=== PATIENT | female | born 1990 | race African-American/Black ===

== ENCOUNTER 2023-11-11 18:06 | Inpatient (IN) | payer MEDICAID ==
[~2023-11-11] VITALS: Ht 144.8 cm; Wt 60.5 kg
[2023-11-11] MEDS: DiphenhydrAMINE HCL 50 MG/ML VIAL IM ONE (19:22)
[2023-11-11] MEDS: LORazepam 2 MG/ML VIAL IM ONE (19:22)
[2023-11-11] MEDS: HALOPERIDOL LACTATE 5 MG/ML VIAL IM ONE (19:23)
[2023-11-11 19:43] LABS: BASOPHILS % (AUTO) 0.4 % (0.0-2.0); EOSINOPHILS % (AUTO) 1.4 % (1.0-6.0); HEMATOCRIT 40.5 % (36-46); HEMOGLOBIN 13.5 g/dL (12.0-16.0); LYMPHOCYTES # (AUTO) 2.1 K/uL (1.0-4.8); LYMPHOCYTES % (AUTO) 14.2 % (22.0-44.0); MEAN CORPUSCULAR HEMOGLOBIN 30.6 pg (26.0-34.0); MEAN CORPUSCULAR HGB CONC 33.3 G/dL (31.0-37.0); MEAN CORPUSCULAR VOLUME 92 fL (80-100); MONOCYTES # (AUTO) 0.8 K/uL (0.1-1.0); MONOCYTES % (AUTO) 5.8 % (2.0-9.0); NEUTROPHILS # (AUTO) 11.5 K/uL (1.8-7.7); NEUTROPHILS % (AUTO) 78.2 % (40.0-70.0); PLATELET COUNT (AUTO) 344 K/uL (150-450); RED BLOOD CELL COUNT(AUTO) 4.41 MIL/uL (4.00-5.20); RED CELL DISTRIBUTION WIDTH 14.6 % (11.5-14.5); WHITE BLOOD COUNT (AUTO) 14.7 K/uL (4.5-11.0)
[2023-11-11 19:50] LABS: ANION GAP 15 mmol/L (8-16); CALCIUM, TOTAL 9.1 mg/dL (8.8-10.5); CARBON DIOXIDE 23 mmol/L (22-29); CHLORIDE 100 mmol/L (98-107); CREATININE 0.91 mg/dL (0.60-1.30); GLOMERULAR FILTR. RATE CALC > 60 mL/min (>60); GLUCOSE,RANDOM 89 mg/dL (70-110); POTASSIUM 3.3 mmol/L (3.5-5.1); SODIUM SERUM 138 mmol/L (136-145); UREA NITROGEN, BLOOD 8 mg/dL (7-18)
[2023-11-11 19:56] LABS: ALANINE AMINOTRANSFERASE 25 U/L (12-78); ALBUMIN 4.1 g/dL (3.4-5.0); ALKALINE PHOSPHATASE 60 U/L (46-116); ASPARTATE AMINOTRANSFERASE 26 U/L (15-37); BILIRUBIN,TOTAL 0.3 mg/dL (0.1-1.0); TOTAL PROTEIN, SERUM 8.8 g/dL (6.4-8.2)
[2023-11-11 19:57] LABS: ALCOHOL, BLOOD (SERUM) 177 mg/dL (0-10)
[2023-11-11 23:01] LABS: COVID AG,FIA SOURCE NASAL SWAB
[2023-11-11 23:24] LABS: SARS-COV2 (COVID) ANTIGEN,FIA Negative (Negative)
[2023-11-12] VITALS (8 sets, daily range): BP systolic 97–127; BP diastolic 60–76; PULSE 76–99; RESP 16–19; TEMP 97.7–98.6; O2SAT 96–100
[2023-11-12] MEDS: POTASSIUM CHLORIDE 20 MEQ ER TABLET PO ONE (00:43)
[2023-11-12] MEDS: ZOLPIDEM TARTRATE 10 MG TABLET PO PRN (03:00)
[2023-11-12] MEDS: LORazepam 2 MG TABLET PO PRN (03:00)
[2023-11-12] MEDS ORDERED: ALBUTEROL SULFATE HFA 90 MCG/PUFF 8 GM INHALER IH PRN (07:30)
[2023-11-12] MEDS ORDERED: CloNIDine HCL 0.1 MG TABLET PO PRN (07:30)
[2023-11-12] MEDS ORDERED: ACETAMINOPHEN 325 MG TABLET PO PRN ×2 (07:30→09:30)
[2023-11-12] MEDS ORDERED: OMEPRAZOLE 20 MG CAPSULE PO PRN (07:30)
[2023-11-12] MEDS ORDERED: DOCUSATE SODIUM 100 MG CAPSULE PO PRN (07:30)
[2023-11-12] MEDS ORDERED: MAG HYDROX/ALUMINUM HYD/SIMETH ES 30 ML SUSPENSION UDCUP PO PRN ×2 (07:30→09:30)
[2023-11-12] MEDS ORDERED: PETROLATUM,WHITE 28 GM JELLY TP PRN (07:30)
[2023-11-12] MEDS ORDERED: MAGNESIUM HYDROXIDE SUSPENSION 30 ML UDCUP PO PRN ×2 (07:30→09:30)
[2023-11-12] MEDS ORDERED: ONDANSETRON HCL 4 MG TABLET PO PRN (07:30)
[2023-11-12] MEDS ORDERED: IBUPROFEN 600 MG TABLET PO PRN (07:30)
[2023-11-12] MEDS ORDERED: BENZOCAINE/MENTHOL LOZENGE PO PRN (07:30)
[2023-11-12] MEDS ORDERED: BACITRACIN 28 GM OINTMENT TP PRN (07:30)
[2023-11-12] MEDS ORDERED: LOPERAMIDE HCL 2 MG CAPSULE PO PRN ×3 (07:30→09:30)
[2023-11-12] MEDS: HALOPERIDOL 5 MG TABLET PO PRN (08:22)
[2023-11-12] MEDS ORDERED: LORazepam 2 MG TABLET PO PRN (09:30)
[2023-11-12] MEDS ORDERED: TUBERCULIN, PURIFIED PROTEIN DERIVATIVE 5 TU/0.1 ML SYRINGE ID ONE (09:30)
[2023-11-12] MEDS ORDERED: HydrOXYzine PAMOATE 50 MG CAPSULE PO PRN (09:30)
[2023-11-12] MEDS ORDERED: GuaiFENesin/D-METHORPHAN [SUGAR-FREE] 200-20MG/10 ML SYRUP UDCUP PO PRN (09:30)
[2023-11-12] MEDS ORDERED: PROMETHAZINE HCL 25 MG TABLET PO PRN (09:30)
[2023-11-12] MEDS: CYANOCOBALAMIN 1,000 MCG/ML VIAL IM ONE (10:26)
[2023-11-12] MEDS: THIAMINE 100 MG TABLET PO SCH (16:30)
[2023-11-12] MEDS: OLANZapine 5 MG RAPDIS TABLET PO SCH (21:07)
[2023-11-12] MEDS: MELATONIN 5 MG TABLET PO SCH (21:07)
[2023-11-13] VITALS (7 sets, daily range): BP systolic 106–134; BP diastolic 67–77; PULSE 86–95; RESP 16–18; TEMP 97.9–100.4; O2SAT 98–100
[2023-11-13] MEDS ORDERED: LORazepam 2 MG TABLET PO PRN (07:00)
[2023-11-13] MEDS: LORazepam 2 MG TABLET PO SCH (08:55)
[2023-11-13] MEDS: MULTIVITAMINS WITH MINERALS, THERAPEUTIC TABLET PO SCH (08:55)
[2023-11-13] MEDS: NALTREXONE HCL 50 MG TABLET PO SCH (08:55)
[2023-11-13] MEDS: FOLIC ACID 1 MG TABLET PO SCH (08:55)
[2023-11-13] MEDS: FLUoxetine HCL 10 MG CAPSULE PO SCH (08:58)
[2023-11-13 09:09] LABS: HEMOGLOBIN A1C 5.2 % (3.8-5.6)
[2023-11-13 09:21] LABS: ALANINE AMINOTRANSFERASE 23 U/L (12-78); ALBUMIN 3.6 g/dL (3.4-5.0); ALKALINE PHOSPHATASE 58 U/L (46-116); ANION GAP 14 mmol/L (8-16); ASPARTATE AMINOTRANSFERASE 41 U/L (15-37); CALCIUM, TOTAL 8.8 mg/dL (8.8-10.5); CARBON DIOXIDE 23 mmol/L (22-29); CHLORIDE 99 mmol/L (98-107); CHOL/HDL RATIO 3.6 (3.9-5.7); CHOLESTEROL 163 mg/dL (131-200); CREATININE 0.69 mg/dL (0.60-1.30); FREE T4 (FREE THYROXINE) 1.21 ng/dL (0.76-1.46); GLOMERULAR FILTR. RATE CALC > 60 mL/min (>60); GLUCOSE,RANDOM 52 mg/dL (70-110); HCG,QUANTITATIVE 100 mIU/mL (0-6); HDL CHOLESTEROL 45 mg/dL (40-60); LDL CHOL (CALC.) 96 mg/dL (0-130); SODIUM SERUM 136 mmol/L (136-145); THYROID STIMULATING HORMONE 1.03 uIU/mL (0.36-3.74); TOTAL PROTEIN, SERUM 7.8 g/dL (6.4-8.2); TRIGLYCERIDES 108 mg/dL (15-150); UREA NITROGEN, BLOOD 12 mg/dL (7-18)
[2023-11-13] MEDS ORDERED: ChlordiazePOXIDE HCL 25 MG CAPSULE PO PRN (17:15)
[2023-11-13] MEDS ORDERED: SERTRALINE HCL 100 MG TABLET PO ONE (17:15)
[2023-11-13] MEDS ORDERED: LITHIUM CARBONATE 600 MG CAPSULE PO SCH (21:00)
[2023-11-13] MEDS: PRENATAL NO.137/IRON/FOLIC ACID TABLET PO SCH (21:21)
[2023-11-14] MEDS ORDERED: ChlordiazePOXIDE HCL 25 MG CAPSULE PO PRN (07:00)
[2023-11-14] MEDS ORDERED: SERTRALINE HCL 100 MG TABLET PO SCH (09:00)
[2023-11-14] MEDS: ChlordiazePOXIDE HCL 25 MG CAPSULE PO SCH (09:18)
[2023-11-14 09:21] VITALS: BP 135/94; PULSE 105; RESP 18; TEMP 98.2; O2SAT 98
[2023-11-15] MEDS ORDERED: LORazepam 1 MG TABLET PO PRN (07:00)
[2023-11-15] MEDS ORDERED: LORazepam 1 MG TABLET PO SCH (09:00)
[2023-11-16] MEDS ORDERED: LORazepam 1 MG TABLET PO PRN (07:00)
[2023-11-16] MEDS ORDERED: ChlordiazePOXIDE HCL 10 MG CAPSULE PO PRN (07:00)
[2023-11-16] MEDS ORDERED: ChlordiazePOXIDE HCL 10 MG CAPSULE PO SCH (09:00)
[2023-11-17] MEDS ORDERED: ChlordiazePOXIDE HCL 10 MG CAPSULE PO PRN (07:00)
== END 2023-11-14 17:05 | disposition home or self-care (01) | DRG 751 ==
LOC: EMS 18:13 → B3A 11-12 02:43
PROVIDERS: ADMIT Psychiatry & Neurology Psychiatry; ATTEND Psychiatry & Neurology Psychiatry
PROC: GZHZZZZ Group Psychotherapy (ICD-10-PCS; principal; 2023-11-13)
PROC: GZ58ZZZ Individual Psychotherapy, Cognitive-Behavioral (ICD-10-PCS; 2023-11-13)
PROC: GZ56ZZZ Individual Psychotherapy, Supportive (ICD-10-PCS; 2023-11-13)
DX: F33.9 Major depressive disorder, recurrent, unspecified (principal); R45.851 Suicidal ideations; R56.9 Unspecified convulsions; E87.6 Hypokalemia; F10.10 Alcohol abuse, uncomplicated; Z20.822 Contact with and (suspected) exposure to COVID-19; F41.9 Anxiety disorder, unspecified; G47.00 Insomnia, unspecified; K59.00 Constipation, unspecified
CPT/HCPCS: 80053; 80061; 83036; 84439; 84443; 84702; 85025; 99285; G0480; J1200; J1630; J2060; J3420

== ENCOUNTER 2024-01-13 15:53 | Emergency (ER) | payer MEDICAID ==
[~2024-01-13] VITALS: Ht 149.9 cm; Wt 59.1 kg
[2024-01-13 16:28] LABS: COVID AG,FIA SOURCE NASAL SWAB
[2024-01-13 16:33] VITALS: TEMP 98.3
[2024-01-13 16:47] LABS: INFLUENZA TYPE A NEGATIVE FOR TYPE A (NEGATIVE); INFLUENZA TYPE B NEGATIVE FOR TYPE B (NEGATIVE); SARS-COV2 (COVID) ANTIGEN,FIA Negative (Negative)
[2024-01-13 19:32] VITALS: BP 125/89; PULSE 76; RESP 20; O2SAT 98
== END 2024-01-13 19:34 | disposition home or self-care (01) ==
LOC: EMS 16:18
DX: K59.00 Constipation, unspecified (principal); R10.30 Lower abdominal pain, unspecified; Z20.822 Contact with and (suspected) exposure to COVID-19
CPT/HCPCS: 74018; 87804; 99284

== ENCOUNTER 2024-12-08 16:17 | Inpatient (IN) | payer MEDICAID, OTHER ==
[~2024-12-08] VITALS: Ht 147.3 cm; Wt 61.6 kg
[2024-12-08 16:57] LABS: PLATELET COUNT (AUTO) 295 K/uL (150-450); RED BLOOD CELL COUNT(AUTO) 4.34 MIL/uL (4.00-5.20); RED CELL DISTRIBUTION WIDTH 14.7 % (11.5-14.5); WHITE BLOOD COUNT (AUTO) 12.2 K/uL (4.5-11.0)
[2024-12-08 17:05] LABS: CALCIUM, TOTAL 8.9 mg/dL (8.8-10.5); CREATININE 0.88 mg/dL (0.60-1.30); GLOMERULAR FILTR. RATE CALC > 60 mL/min (>60); GLUCOSE,RANDOM 98 mg/dL (70-110); SODIUM SERUM 143 mmol/L (136-145); UREA NITROGEN, BLOOD 6 mg/dL (7-18)
[2024-12-08 17:05] LABS: COVID AG,FIA SOURCE NASAL SWAB
[2024-12-08 17:28] LABS: SARS-COV2 (COVID) ANTIGEN,FIA Negative (Negative)
[2024-12-08 18:42] VITALS: O2SAT 99
[2024-12-08] MEDS: POTASSIUM CHLORIDE 20 MEQ ER TABLET PO ONE (19:08)
[2024-12-08] MEDS: NICOTINE 7 MG/24 HOUR PATCH TD ONE (20:20)
[2024-12-08 23:01] VITALS: BP 154/104; PULSE 76; RESP 19; TEMP 98.1; O2SAT 99
[2024-12-09] MEDS ORDERED: OMEPRAZOLE 20 MG CAPSULE PO PRN (02:00)
[2024-12-09] MEDS ORDERED: PETROLATUM,WHITE 28 GM JELLY TP PRN (02:00)
[2024-12-09] MEDS ORDERED: LOPERAMIDE HCL 2 MG CAPSULE PO PRN (02:00)
[2024-12-09] MEDS ORDERED: MAG HYDROX/ALUMINUM HYD/SIMETH ES 30 ML SUSPENSION UDCUP PO PRN (02:00)
[2024-12-09] MEDS ORDERED: DOCUSATE SODIUM 100 MG CAPSULE PO PRN (02:00)
[2024-12-09] MEDS ORDERED: BACITRACIN 28 GM OINTMENT TP PRN (02:00)
[2024-12-09] MEDS ORDERED: BENZOCAINE/MENTHOL [CEPACOL] LOZENGE PO PRN (02:00)
[2024-12-09] MEDS ORDERED: MAGNESIUM HYDROXIDE SUSPENSION 30 ML UDCUP PO PRN (02:00)
[2024-12-09] MEDS ORDERED: ONDANSETRON 4 MG TABLET PO PRN (02:00)
[2024-12-09] MEDS ORDERED: ALBUTEROL SULFATE HFA 90 MCG/PUFF 8 GM INHALER IH PRN (02:00)
[2024-12-09] MEDS: NICOTINE 21 MG/24 HOUR PATCH TD SCH (08:13)
[2024-12-09 08:18] VITALS: BP 119/78; PULSE 78; RESP 16; TEMP 96.7; O2SAT 97
[2024-12-09] MEDS ORDERED: SERT200C PO (10:51)
[2024-12-09] MEDS ORDERED: LITH300T45 PO (10:51)
[2024-12-09 11:42] VITALS: RESP 18
[2024-12-09] MEDS: SERTRALINE HCL 100 MG TABLET PO SCH (11:42)
[2024-12-09] MEDS: ACETAMINOPHEN 325 MG TABLET PO PRN (11:43)
[2024-12-09 12:42] VITALS: RESP 18
[2024-12-09 18:20] VITALS: RESP 16
[2024-12-09 19:20] VITALS: RESP 16
[2024-12-09 20:21] VITALS: BP 125/82; PULSE 69; RESP 17; TEMP 97.8; O2SAT 98
[2024-12-09] MEDS: LITHIUM CARBONATE 300 MG ER TABLET PO SCH (20:48)
[2024-12-10 08:23] VITALS: BP 134/90; PULSE 76; RESP 18; TEMP 97; O2SAT 99
[2024-12-10 09:00] LABS: PLATELET COUNT (AUTO) 195 K/uL (150-450); RED BLOOD CELL COUNT(AUTO) 4.18 MIL/uL (4.00-5.20); RED CELL DISTRIBUTION WIDTH 14.8 % (11.5-14.5); WHITE BLOOD COUNT (AUTO) 7.0 K/uL (4.5-11.0)
[2024-12-10 09:28] LABS: ASPARTATE AMINOTRANSFERASE 19 U/L (15-37); CALCIUM, TOTAL 8.4 mg/dL (8.8-10.5); CHOL/HDL RATIO 3.2 (3.9-5.7); CREATININE 0.87 mg/dL (0.60-1.30); GLOMERULAR FILTR. RATE CALC > 60 mL/min (>60); GLUCOSE,RANDOM 97 mg/dL (70-110); LDL CHOL (CALC.) 94 mg/dL (0-130); PHOSPHORUS 3.5 mg/dL (2.5-4.9); SODIUM SERUM 137 mmol/L (136-145); TOTAL PROTEIN, SERUM 6.7 g/dL (6.4-8.2); UREA NITROGEN, BLOOD 8 mg/dL (7-18)
[2024-12-10 20:13] VITALS: BP 132/81; PULSE 85; RESP 18; TEMP 98.4; O2SAT 100
[2024-12-11 07:55] VITALS: BP 114/70; PULSE 72; RESP 17; TEMP 97.1; O2SAT 98
[2024-12-11 12:39] VITALS: BP 114/75; PULSE 72; RESP 18; TEMP 97.1; O2SAT 97
[2024-12-11 17:05] VITALS: RESP 18
[2024-12-11] MEDS: IBUPROFEN 600 MG TABLET PO PRN (17:06)
[2024-12-11 18:05] VITALS: RESP 18
[2024-12-11 20:05] VITALS: BP 123/91; PULSE 91; RESP 17; TEMP 98.1; O2SAT 98
[2024-12-11] MEDS: ZOLPIDEM TARTRATE 10 MG TABLET PO PRN (20:58)
[2024-12-12 08:20] VITALS: BP 124/72; PULSE 88; RESP 16; TEMP 97.6; O2SAT 100
[2024-12-12] MEDS: CYCLOBENZAPRINE HCL 10 MG TABLET PO SCH (08:41)
[2024-12-12 09:28] LABS: PH,URINE DRUG SCREEN 7.0 (5.0-8.0)
[2024-12-12 09:33] LABS: ALCOHOL, URINE DRUG SCREEN NEGATIVE (NEGATIVE); AMPHET/METH SCREEN,URINE NEGATIVE (NEGATIVE); BARBITURATE SCREEN, URINE NEGATIVE (NEGATIVE); CANNABINOID SCREEN,URINE POSITIVE (NEGATIVE); COCAINE SCREEN,URINE NEGATIVE (NEGATIVE); METHADONE SCREEN, URINE NEGATIVE (NEGATIVE)
[2024-12-12 16:15] VITALS: BP 131/77; PULSE 83; RESP 17; TEMP 97.8
[2024-12-12 20:00] VITALS: BP 139/86; PULSE 109; RESP 18; TEMP 98.5; O2SAT 99
[2024-12-13 08:32] VITALS: BP 112/72; PULSE 98; RESP 16; TEMP 97.8; O2SAT 99
[2024-12-13 16:34] VITALS: BP 108/77; PULSE 86; RESP 17; TEMP 97.8
[2024-12-13 20:09] VITALS: BP 114/77; PULSE 89; RESP 18; TEMP 97.7; O2SAT 100
[2024-12-13] MEDS: MIRTAZAPINE 15 MG TABLET PO SCH (20:54)
[2024-12-14 08:22] VITALS: BP 111/70; PULSE 91; RESP 16; TEMP 97.6; O2SAT 100
[2024-12-14] MEDS ORDERED: MIRT-89 PO (12:35)
[2024-12-14] MEDS ORDERED: CYCL-448 PO (12:35)
[2024-12-14] MEDS ORDERED: SERT-440 PO (12:35)
[2024-12-14] MEDS ORDERED: LITH300T45 PO (12:35)
[2024-12-14 20:43] VITALS: BP 119/70; PULSE 80; RESP 17; TEMP 97.7; O2SAT 98
[2024-12-15 08:09] VITALS: BP 117/80; PULSE 100; RESP 18; TEMP 97.3; O2SAT 99
[2024-12-15 18:00] VITALS: RESP 18; O2SAT 99
[2024-12-15 19:00] VITALS: RESP 17
[2024-12-15 20:25] VITALS: BP 128/80; PULSE 99; RESP 16; TEMP 97; O2SAT 98
[2024-12-16 08:15] VITALS: BP 108/77; PULSE 107; RESP 16; TEMP 97.5; O2SAT 97
== END 2024-12-16 15:44 | disposition home or self-care (01) | DRG 753 ==
LOC: EMS 16:17 → B3A 19:11
PROVIDERS: ADMIT Psychiatry & Neurology Psychiatry; ATTEND Psychiatry & Neurology Psychiatry
PROC: GZHZZZZ Group Psychotherapy (ICD-10-PCS; principal; 2024-12-09)
PROC: GZ52ZZZ Individual Psychotherapy, Cognitive (ICD-10-PCS; 2024-12-12)
DX: F31.64 Bipolar disorder, current episode mixed, severe, with psychotic features (principal); R45.851 Suicidal ideations; F10.10 Alcohol abuse, uncomplicated; F41.9 Anxiety disorder, unspecified; Z20.822 Contact with and (suspected) exposure to COVID-19; G47.00 Insomnia, unspecified; K59.00 Constipation, unspecified; E87.6 Hypokalemia; Z79.899 Other long term (current) drug therapy; Z87.891 Personal history of nicotine dependence
CPT/HCPCS: 80048; 80053; 80061; 80178; 80307; 83036; 83735; 84100; 84443; 84703; 85025; 99285; G0480

== ENCOUNTER 2024-12-24 23:09 | Inpatient (IN) | payer MEDICAID ==
[~2024-12-24] VITALS: Ht 144.8 cm; Wt 60.9 kg
[~2024-12-24 23:09] MED LIST: CYCL-448 PO; LITH300T45 PO; MIRT-89 PO; SERT-440 PO
[2024-12-24 23:46] LABS: PLATELET COUNT (AUTO) 304 K/uL (150-450); RED BLOOD CELL COUNT(AUTO) 4.20 MIL/uL (4.00-5.20); RED CELL DISTRIBUTION WIDTH 14.6 % (11.5-14.5); WHITE BLOOD COUNT (AUTO) 8.7 K/uL (4.5-11.0)
[2024-12-24 23:51] LABS: CALCIUM, TOTAL 9.2 mg/dL (8.8-10.5); CREATININE 0.79 mg/dL (0.60-1.30); GLOMERULAR FILTR. RATE CALC > 60 mL/min (>60); GLUCOSE,RANDOM 120 mg/dL (70-110); SODIUM SERUM 138 mmol/L (136-145); UREA NITROGEN, BLOOD 10 mg/dL (7-18)
[2024-12-25] MEDS: LORazepam 2 MG/ML VIAL IM ONE (00:54)
[2024-12-25 01:08] LABS: APPEARANCE,URINE CLEAR (CLEAR); GLUCOSE, URINE (UA) NEGATIVE (NEGATIVE); LEUKOCYTE ESTERASE ,URINE NEGATIVE (NEGATIVE); NITRATE,URINE NEGATIVE (NEGATIVE); OCCULT BLOOD,URINE NEGATIVE (NEGATIVE); PH,URINE DRUG SCREEN 5.0 (5.0-8.0); SPECIFIC GRAVITIY, URINE 1.017 (1.003-1.030)
[2024-12-25 01:11] LABS: ALCOHOL, URINE DRUG SCREEN NEGATIVE (NEGATIVE)
[2024-12-25 01:13] LABS: AMPHET/METH SCREEN,URINE NEGATIVE (NEGATIVE); BARBITURATE SCREEN, URINE NEGATIVE (NEGATIVE); CANNABINOID SCREEN,URINE POSITIVE (NEGATIVE); COCAINE SCREEN,URINE NEGATIVE (NEGATIVE); METHADONE SCREEN, URINE NEGATIVE (NEGATIVE)
[2024-12-25 01:15] LABS: COVID AG,FIA SOURCE NASAL SWAB
[2024-12-25 01:42] LABS: SARS-COV2 (COVID) ANTIGEN,FIA Negative (Negative)
[2024-12-25] MEDS ORDERED: ZOLPIDEM TARTRATE 10 MG TABLET PO PRN (05:00)
[2024-12-25 07:05] VITALS: O2SAT 97
[2024-12-25 08:41] VITALS: BP 110/78; PULSE 81; RESP 17; TEMP 97.7; O2SAT 98
[2024-12-25] MEDS: SERTRALINE HCL 100 MG TABLET PO SCH (09:31)
[2024-12-25] MEDS ORDERED: MAGNESIUM HYDROXIDE SUSPENSION 30 ML UDCUP PO PRN (18:30)
[2024-12-25] MEDS ORDERED: LOPERAMIDE HCL 2 MG CAPSULE PO PRN (18:30)
[2024-12-25] MEDS ORDERED: PETROLATUM,WHITE 28 GM JELLY TP PRN (18:30)
[2024-12-25] MEDS ORDERED: ACETAMINOPHEN 325 MG TABLET PO PRN (18:30)
[2024-12-25] MEDS ORDERED: BACITRACIN 28 GM OINTMENT TP PRN (18:30)
[2024-12-25] MEDS ORDERED: OMEPRAZOLE 20 MG CAPSULE PO PRN (18:30)
[2024-12-25] MEDS ORDERED: IBUPROFEN 600 MG TABLET PO PRN (18:30)
[2024-12-25] MEDS ORDERED: BENZOCAINE/MENTHOL [CEPACOL] LOZENGE PO PRN (18:30)
[2024-12-25] MEDS ORDERED: ONDANSETRON 4 MG TABLET PO PRN (18:30)
[2024-12-25] MEDS ORDERED: DOCUSATE SODIUM 100 MG CAPSULE PO PRN (18:30)
[2024-12-25] MEDS ORDERED: ALBUTEROL SULFATE HFA 90 MCG/PUFF 8 GM INHALER IH PRN (18:30)
[2024-12-25] MEDS ORDERED: MAG HYDROX/ALUMINUM HYD/SIMETH ES 30 ML SUSPENSION UDCUP PO PRN (18:30)
[2024-12-25] MEDS: LITHIUM CARBONATE 300 MG ER TABLET PO SCH (20:32)
[2024-12-25 22:06] VITALS: RESP 17
[2024-12-26 08:21] LABS: PLATELET COUNT (AUTO) 307 K/uL (150-450); RED BLOOD CELL COUNT(AUTO) 4.33 MIL/uL (4.00-5.20); RED CELL DISTRIBUTION WIDTH 14.8 % (11.5-14.5); WHITE BLOOD COUNT (AUTO) 7.7 K/uL (4.5-11.0)
[2024-12-26 08:29] VITALS: RESP 16
[2024-12-26 08:52] LABS: CHOL/HDL RATIO 3.8 (3.9-5.7); LDL CHOL (CALC.) 125.0 mg/dL (0-130)
[2024-12-26] MEDS: NICOTINE POLACRILEX 2 MG LOZENGE PO PRN (12:28)
[2024-12-26 20:47] VITALS: BP 138/83; PULSE 98; RESP 17; TEMP 98; O2SAT 97
[2024-12-27 08:46] VITALS: BP 135/84; PULSE 100; RESP 16; TEMP 97.9; O2SAT 100
[2024-12-27] MEDS ORDERED: RISP-32 PO (17:18)
== END 2024-12-27 17:40 | disposition home or self-care (01) | DRG 753 ==
LOC: EMS 23:09 → B3A 12-25 07:04 → EMS 12-25 07:06
PROVIDERS: ADMIT Psychiatry & Neurology Psychiatry; ATTEND Psychiatry & Neurology Psychiatry
PROC: GZHZZZZ Group Psychotherapy (ICD-10-PCS; principal; 2024-12-25)
PROC: GZ52ZZZ Individual Psychotherapy, Cognitive (ICD-10-PCS; 2024-12-27)
DX: F31.64 Bipolar disorder, current episode mixed, severe, with psychotic features (principal); R45.851 Suicidal ideations; Z20.822 Contact with and (suspected) exposure to COVID-19; F41.9 Anxiety disorder, unspecified; K59.00 Constipation, unspecified; G47.00 Insomnia, unspecified; F10.10 Alcohol abuse, uncomplicated; Y90.9 Presence of alcohol in blood, level not specified; E03.9 Hypothyroidism, unspecified; F12.10 Cannabis abuse, uncomplicated; Z59.00 Homelessness unspecified; Z79.899 Other long term (current) drug therapy
CPT/HCPCS: 80048; 80061; 80307; 81003; 83036; 84439; 84443; 84703; 85025; 96372; 99285; G0480; J1200; J1630; J2060